=== PATIENT | male | born 1970 | race Caucasian/White ===

== ENCOUNTER 2017-12-06 02:50 | Inpatient (IN) | payer OTHER ==
[~2017-12-06] VITALS: Ht 167.6 cm; Wt 84.3 kg
[2017-12-06] VITALS (7 sets, daily range): BP systolic 118–180; BP diastolic 68–97; PULSE 51–73; RESP 20; TEMP 96.4–97.8; O2SAT 95–98
[2017-12-06] MEDS ORDERED: DEXTROSE 50% IN WATER 50 ML VIAL(D50) IV PUSH PRN (03:45)
[2017-12-06] MEDS ORDERED: PANTOPRAZOLE SODIUM 40 MG VIAL IV PUSH SCH (03:45)
[2017-12-06] MEDS ORDERED: ONDANSETRON HCL 4 MG/2 ML VIAL IV PUSH PRN (03:45)
[2017-12-06] MEDS ORDERED: GLUCAGON 1 MG/ML VIAL OTHER PRN (03:45)
[2017-12-06] MEDS: SODIUM CHLOR 0.9% 1000 ML INJ 1,000 ML IV SCH ×3 (04:18→21:54)
[2017-12-06 06:43] LABS: AUTOMATED NEUTROPHIL # 4.7 TH/MM3 (1.8-7.7); BASOPHIL # 0.1 TH/MM3 (0-0.2); BASOPHIL % 0.9 % (0.0-2.0); EOSINOPHIL # 0.3 TH/MM3 (0-0.4); EOSINOPHIL % 2.8 % (0.0-4.0); HEMOGLOBIN 15.3 GM/DL (13.0-17.0); LYMPH % 33.4 % (9.0-44.0); MEAN CORPUSCULAR HGB CONC 33.3 % (32.0-36.0); MEAN PLATELET VOLUME 7.8 FL (7.0-11.0); MONO % 8.8 % (0.0-8.0); MONOCYTE # 0.8 TH/MM3 (0-0.9); NEUT % 54.1 % (16.0-70.0); PLATELET COUNT 288 TH/MM3 (150-450); RED BLOOD COUNT 4.95 MIL/MM3 (4.50-5.90); RED CELL DISTRIBUTION WIDTH 12.9 % (11.6-17.2); WHITE BLOOD COUNT 8.9 TH/MM3 (4.0-11.0)
[2017-12-06 06:47] LABS: CHLORIDE 108 MEQ/L (98-107); SODIUM (NA) 141 MEQ/L (136-145)
[2017-12-06 06:55] LABS: CALCIUM 8.4 MG/DL (8.5-10.1)
[2017-12-06 06:56] LABS: BICARBONATE 26.7 MEQ/L (21.0-32.0); BLOOD UREA NITROGEN 9 MG/DL (7-18); GLUCOSE,RANDOM 158 MG/DL (74-106)
[2017-12-06 06:57] LABS: ALT (GPT) 22 U/L (12-78); AST (GOT) 10 U/L (15-37)
[2017-12-06 06:58] LABS: TOTAL BILIRUBIN ADULT 0.2 MG/DL (0.2-1.0); TOTAL PROTEIN 6.1 GM/DL (6.4-8.2)
[2017-12-06 06:59] LABS: ALKALINE PHOSPHATASE 81 U/L (45-117); GLOMERULAR FILTRATION RATE 121 ML/MIN (>89)
[2017-12-06] MEDS ORDERED: INSULIN ASPART SUPPLEMENTAL SCALE SQ SCH (08:00)
--- NOTE | 2017-12-06 08:47 | RADRPT ---
EXAM DATE: 12/06/2017 8:18 AM EDT AGE/SEX: 47 years / Male INDICATIONS: Right upper quadrant pain. CLINICAL DATA: This is the patient's initial encounter. Patient reports that signs and/or symptoms h ave been present for 1 week and indicates a pain score of 1/10. MEDICAL/SURGICAL HISTORY: Congestive heart failure. Hypercholesterolemia. Chronic obstructive pul monary disease. Myocardial infarction. Sleep apnea. Hiatal hernia. Diabetes. Hypertension. CABG. St ent placement. COMPARISON: [facility], CT ABDOMEN & PELVIS W CONTRAST, 12/05/2017. MEASUREMENTS (cm x cm x cm): Liver:__ 19.9 cm length Common Bile Duct:__ 4mm FINDINGS: Liver: Echogenic liver without ductal dilatation Portal Vein: Hepatopedal flow seen in portal vein. Common Duct: No intraluminal mass or stone visualized. Gallbladder: Negative for stone or pericholecystic fluid. Pancreas: Pancreas poorly seen. Right Kidney: No mass or hydronephrosis Other: Small right pleural effusion CONCLUSION: 1. Degenerative liver. 2. Benign-appearing gallbladder without stones. Electronically signed by: Perfecto Oro MD 12/06/2017 8:45 AM EDT
[2017-12-06 10:33] LABS: CHOLESTEROL 206 MG/DL (120-200)
[2017-12-06 10:39] LABS: CHOLESTEROL/ HDL RATIO 5.64 RATIO; HDL CHOLESTEROL 36.5 MG/DL (40.0-60.0); LDL CHOLESTEROL 120 MG/DL (0-99); TRIGLYCERIDES 247 MG/DL (42-150)
[2017-12-06] MEDS ORDERED: ATOR40TA16 PO (11:27)
[2017-12-06] MEDS ORDERED: ASPI-183 PO (11:27)
[2017-12-06] MEDS ORDERED: LISI10TA3 PO (11:27)
[2017-12-06] MEDS ORDERED: FISH100020 PO (11:27)
[2017-12-06] MEDS ORDERED: PIOG30TA4 PO (11:27)
[2017-12-06] MEDS ORDERED: DAPA1TAB3 PO (11:27)
[2017-12-06] MEDS ORDERED: BENA20TA PO (11:27)
[2017-12-06] MEDS ORDERED: GABA600T PO (11:27)
[2017-12-06] MEDS ORDERED: METF500T PO (11:27)
[2017-12-06] MEDS ORDERED: CLOP75TA PO (11:27)
[2017-12-06] MEDS ORDERED: FLUT50SP EACH NARE (11:27)
[2017-12-06] MEDS: INSULIN ASPART SUPPLEMENTAL SCALE SQ SCH ×3 (12:00→21:00)
--- NOTE | 2017-12-06 12:01 | MH ---
cc: Kecia Carvajal MD DATE OF ADMISSION: 12/06/2017 ADMISSION DIAGNOSIS: Pancreatitis. HISTORY OF PRESENT ILLNESS: Mr. Zimmer is a very pleasant 47-year-old gentleman who states he presented to the emergency room in [place] after developing persistent abdominal pain the day of presentation. He does state that 2 days prior to coming to the emergency room, he did feel like his stomach was what he calls rolling and upset. He said the pain was worse when he coughed or bent over. He does have a ventral hernia and he thought this might have been the cause of some of his discomfort. He states until then, he was in his usual state of health. He denied any change in his diet or medications. He did tell me he was taking increased BC Powder recently for migraine headaches that he has been having issues with over the last year. He denies any change in bowel movements. No nausea or emesis. He states he really does not consume any alcohol. He was a heavy alcohol drinker, but he stopped back in 2010. He did state that over the weekend, he did have 3 drinks of vodka, but he states he did not actually really finish them. PAST MEDICAL HISTORY: Significant for diabetes, coronary artery disease. He did have a stent placed last year. He did have a bypass to his left lower extremity he said for a blood clot that he had. He denies being put on a blood thinner after that. He says he has been told he has COPD, but is not under treatment for that. He also tells me that he has been told that he has sleep apnea and actually when he had his stent placed, they had to wake him repeatedly postoperatively, but that has not been evaluated. He also states he has a history of hypertension and high cholesterol. SURGICAL HISTORY: He denies any surgeries except for the bypass. MEDICATIONS: He is not sure of the dosages of his medications. He is able to tell me that he is on Plavix, atorvastatin, metformin, lisinopril, aspirin and gabapentin. HABITS: He has been a smoker since he was 17. He used to smoke 2 packs a day. He is now down to 1 pack a day. He is trying to cut back. Alcohol, he admits to being a heavy alcohol consumer. He said he had at least 30 shots of whiskey or 30 drinks with whiskey a week. He now very rarely drinks. He says on occasion, he will go and have a half a beer with his friends, but most of the time, he avoids alcohol. SOCIAL HISTORY: He is single. 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 REVIEW OF SYSTEMS: He states that he has had some recent weight loss. This has been unintentional. He does have chronic recurrent headaches primarily on the right side, which apparently he has been seen by multiple specialists for. He does say that he is very fatigued. He wakes up without feeling rested. He falls asleep easily. He does say that he does have some sinus issues, particularly when he is out. This will flare up at times while he is working out cutting the grass. He tells me he has seen an ENT. He denies any sore throat. No cough. No shortness of breath. No wheezing. He denies any chest pain or palpitations. He tells me that when he had his stent placed, his primary symptom was back pain, which he denies having. Abdominal pain, see history of present illness. He does say that he has been urinating. He does say his urine is dark. He tells me he realizes that one of his problems is that he does not drink a lot of fluids during the day and he particularly hydrates with Mountain Dew and Crystal Light. He is trying to drink more water. He does have some numbness in the left lower extremity. He does not know if that is from his diabetic neuropathy or if it is from the blood clot he had in his leg. He says that is what he is on the gabapentin for. PHYSICAL EXAM: VITAL SIGNS: Temperature is 96.4, pulse is 62, respirations 20, blood pressure is 118/74, pulse oximetry is 97 percent on room air. GENERAL: He is alert and oriented, very pleasant, does not appear to be in any acute distress right now. He is kind of elyssa complected. HEENT: Normocephalic, atraumatic. EOMs intact. He has a moist oral mucosa. NECK: Supple. LUNGS: Diminished breath sounds throughout with prolonged expiratory phase, but no rhonchi, rales or wheezes. HEART: Sounds are distant. They sound regular. ABDOMEN: Good bowel sounds in all 4 quadrants. No rebound or guarding. He does have a ventral hernia. EXTREMITIES: Show no clubbing or cyanosis. His left lower extremity, his ankle is a little bit larger than his right. LABORATORY DATA: When he presented to [place] showed a white count of 13, hemoglobin of 15.7, hematocrit of 45.2, platelet count of 337. His PT was 10.2 with an INR 1, PTT is 24.8. His sodium was 142 with a potassium of 3.6, BUN was 11 with a creatinine of 1. Random glucose was 258. His lactic acid was 2.9, calcium was 8.2, AST was 16, ALT was 26, alkaline phosphatase was 93. Troponin was less than 0.02. His BNP was 8, albumin was 3.3 and his lipase is 2171. Ethyl alcohol was less than 3. CT scan that was done in [place] showed a small cyst of the lower pole of the left kidney, probable 6 mm hepatic cyst in the right lobe. Small umbilical hernia containing mesenteric fat. Essentially no acute pathology. This morning, his white count is down to 8.9 with a hemoglobin of 15.3, hematocrit of 46. Sodium was 141 with a potassium of 3.6, creatinine was 0.7. Ionized calcium is pending. AST and ALT and alkaline phosphatase are normal. His lipase was 199, triglycerides were 247, LDL 120. Ionized calcium and hemoglobin A1c are still pending. Ultrasound of the liver showed degenerative liver with benign appearing gallbladder without stones. ASSESSMENT AND PLAN: 1. Apparent acute pancreatitis. This clinically appears to have resolved by this morning. He is pain free. He is feeling much better. His lipase has come down. He does not appear to have any gallstones. His triglycerides are elevated, but not as elevated as I would expect to cause pancreatitis. We did talk about his extensive drinking history and alcohol he did have this week and that might have been a little bit of a contributing factor. Be that as it may, I am going to try to progress his diet and continue to monitor him clinically. 2. For his diabetes, we will cover him with a sliding scale. I discussed with him the importance of taking his metformin. Apparently, he does miss one of his doses every day. It may be a consideration to put him on an extended release if he is able to only take the pill once a day, that might facilitate compliance. For his hypertension, his blood pressure so far has been fine off of antihypertensives. We will hold his lisinopril. For his neuropathy, he is on the gabapentin. For his history of thrombosis and coronary artery disease, I will resume his Plavix and aspirin. I did discuss with him it really sounds by history that he has sleep apnea and he really needs to be evaluated for this. Hopefully, he will be able to followup with his primary care physician and get this done as an outpatient. Further recommendations as the case develops. Kecia Carvajal MD [facility]TON[facility] , 11:20 AM , 11:59 AM
[2017-12-06] MEDS: CLOPIDOGREL 75 MG TAB PO SCH (12:23)
[2017-12-06] MEDS ORDERED: NICOTINE 21 MG/24 HR PATCH T-DERMAL ONE (13:00)
[2017-12-06] MEDS: FLUTICASONE PROPIONATE 50 MCG/ACT 16 GM NASAL SPRAY EACH NARE SCH (15:07)
[2017-12-06 16:32] LABS: HEMOGLOBIN A1C 8.5 % (4.3-6.0)
[2017-12-06] MEDS ORDERED: ATORVASTATIN 40 MG TAB PO SCH (21:00)
[2017-12-06] MEDS: GABAPENTIN 300 MG CAP PO SCH (21:51)
[2017-12-06] MEDS ORDERED: ENALAPRILAT 1.25 MG/ML VIAL IV PUSH ONE (22:45)
[2017-12-06] MEDS ORDERED: LISINOPRIL 10 MG TAB PO ONE (22:45)
[2017-12-07] VITALS: BP 135/81; PULSE 84; RESP 20; TEMP 97.5; O2SAT 95
[2017-12-07 06:20] LABS: AUTOMATED NEUTROPHIL # 5.8 TH/MM3 (1.8-7.7); BASOPHIL # 0.1 TH/MM3 (0-0.2); BASOPHIL % 1.1 % (0.0-2.0); EOSINOPHIL # 0.2 TH/MM3 (0-0.4); EOSINOPHIL % 2.5 % (0.0-4.0); HEMATOCRIT 44.4 % (39.0-51.0); HEMOGLOBIN 15.2 GM/DL (13.0-17.0); LYMPHOCYTE # 2.5 TH/MM3 (1.0-4.8); MEAN CELL VOLUME 91.8 FL (80.0-100.0); MEAN CORPUSCULAR HEMOGLOBIN 31.4 PG (27.0-34.0); MEAN CORPUSCULAR HGB CONC 34.2 % (32.0-36.0); MEAN PLATELET VOLUME 7.8 FL (7.0-11.0); MONO % 7.2 % (0.0-8.0); MONOCYTE # 0.7 TH/MM3 (0-0.9); NEUT % 62.2 % (16.0-70.0); PLATELET COUNT 295 TH/MM3 (150-450); RED BLOOD COUNT 4.84 MIL/MM3 (4.50-5.90); RED CELL DISTRIBUTION WIDTH 13.5 % (11.6-17.2); WHITE BLOOD COUNT 9.3 TH/MM3 (4.0-11.0)
[2017-12-07 06:33] LABS: CHLORIDE 108 MEQ/L (98-107); SODIUM (NA) 142 MEQ/L (136-145)
[2017-12-07 06:37] LABS: ALBUMIN 2.8 GM/DL (3.4-5.0); BICARBONATE 27.1 MEQ/L (21.0-32.0); BLOOD UREA NITROGEN 10 MG/DL (7-18); GLUCOSE,RANDOM 207 MG/DL (74-106)
[2017-12-07 06:40] LABS: ALT (GPT) 22 U/L (12-78); AST (GOT) 10 U/L (15-37); CREATININE 0.81 MG/DL (0.60-1.30); GLOMERULAR FILTRATION RATE 102 ML/MIN (>89)
[2017-12-07 06:42] LABS: TOTAL BILIRUBIN ADULT 0.1 MG/DL (0.2-1.0); TOTAL PROTEIN 5.7 GM/DL (6.4-8.2)
[2017-12-07 06:43] LABS: ALKALINE PHOSPHATASE 79 U/L (45-117)
[2017-12-07 07:50] VITALS: BP 138/88; PULSE 50; RESP 20; TEMP 96.9; O2SAT 96
[2017-12-07] MEDS: SODIUM CHLOR 0.9% 1000 ML INJ 1,000 ML IV SCH (08:17)
[2017-12-07] MEDS: INSULIN ASPART SUPPLEMENTAL SCALE SQ SCH ×2 (08:20→12:00)
[2017-12-07] MEDS: FLUTICASONE PROPIONATE 50 MCG/ACT 16 GM NASAL SPRAY EACH NARE SCH (08:20)
[2017-12-07] MEDS: CLOPIDOGREL 75 MG TAB PO SCH (08:21)
[2017-12-07] MEDS: GABAPENTIN 300 MG CAP PO SCH (08:21)
[2017-12-07] MEDS ORDERED: ASPIRIN 325 MG TAB PO SCH (09:00)
[2017-12-07] MEDS ORDERED: PANTOPRAZOLE SOD 40 MG DELAYED RELEASE TAB PO SCH (09:00)
[2017-12-07] MEDS ORDERED: NON-FORMULARY DRUG (Omega-3 Fatty Acids (Fish Oil 1000 mg) 1,000 MG) PO SCH (09:00)
[2017-12-07] MEDS ORDERED: LISINOPRIL 10 MG TAB PO SCH (09:00)
--- NOTE | 2017-12-07 11:34 | HHI.PR ---
Subjective Remarks feels fine this morning, wants to go home, has never had diabetic education, does not know how to use his meter Objective Vitals Vital Signs Date Time Temp Pulse Resp B/P (MAP) Pulse Ox O2 Delivery O2 Flow Rate FiO2 12/07/17 07:50 96.9 50 20 138/88 (105) 96 12/07/17 00:00 97.5 84 20 135/81 (99) 95 12/06/17 20:05 97 21 12/06/17 20:00 97.7 66 20 180/97 (124) 95 12/06/17 15:50 97.8 73 20 134/76 (95) 98 12/06/17 11:50 96.8 51 20 139/90 (106) 12/07/17 12/07/17 12/08/17 15:00 23:00 07:00 Intake Total 859 ml Balance 859 ml Intake Oral 500 ml IV Total 359 ml # Voids 1 Result Diagram: 12/07/17 0555 12/07/17 0555 Objective Remarks sitting and walking around room nad lungs cta bilaterally heart rrr abdomen nontender, umbilical hernia ext no edema A/P Problem List: (1) Pancreatitis ICD Codes: K85.90 - Acute pancreatitis without necrosis or infection, unspecified Status: Resolved Plan: lipase was down by yesterday and he is tolerating food with out any discomfort (2) Diabetes type 2, uncontrolled ICD Codes: E11.65 - Type 2 diabetes mellitus with hyperglycemia Status: Chronic Plan: Had long discussion with patient. He know very little about his diabetes , medications, diet or how to use glucometer. Will have supervisor laboratory see him today before discharge. Have spoken to case management ar [facility] and they will set him up with diabetic education and cap cutter. Given the physical nature of his job and the potential for dehydration have asked him to hold off on using his farxiga. He verbalizes understanding and an interest in the diabetic education and cap cutter (3) Hypertension ICD Codes: I10 - Essential (primary) hypertension Status: Chronic Plan: lisinopril resumed last night (4) Coronary artery disease ICD Codes: I25.10 - Atherosclerotic heart disease of [place] coronary artery without angina pectoris Status: Chronic Plan: s/p stent placement last november per patient. Discussed with him the importance of controlling risk factors such as diabetes, cholesterol and smoking cessation (5) Hyperlipidemia ICD Codes: E78.5 - Hyperlipidemia, unspecified Status: Chronic Plan: ldl not at goal for a diabetic and CAD will increase atorvastatin to 80 mg daily (6) Nicotine dependence ICD Codes: F17.200 - Nicotine dependence, unspecified, uncomplicated Status: Chronic Plan: discussed importance of smoking cessation, currently using nicotine patch Discharge Planning discharge later today after seen by supervisor laboratory Problem Qualifiers (1) Pancreatitis: (2) Diabetes type 2, uncontrolled: (3) Hypertension: Qualified Codes: I10 - Essential (primary) hypertension (4) Nicotine dependence: Kecia Carvajal MD December 07, 2017 11:34
[2017-12-07 11:44] VITALS: O2SAT 97
[2017-12-07 11:50] VITALS: BP 162/82; PULSE 69; RESP 20; TEMP 98.7; O2SAT 92
[2017-12-07] MEDS ORDERED: ATOR40TA16 PO (12:57)
[2017-12-07] MEDS ORDERED: LISI10TA3 PO (12:57)
== END 2017-12-07 14:40 | disposition home or self-care (01) | DRG 440 ==
LOC: PHEDDLT 02:50 → PH3A 03:10 → OBSVTOIN 03:38
PROVIDERS: ADMIT Legal Medicine; ATTEND Legal Medicine
DX: K85.90 Acute pancreatitis without necrosis or infection, unspecified (principal); E11.40 Type 2 diabetes mellitus with diabetic neuropathy, unspecified; E11.65 Type 2 diabetes mellitus with hyperglycemia; I10 Essential (primary) hypertension; G43.909 Migraine, unspecified, not intractable, without status migrainosus; I25.10 Atherosclerotic heart disease of native coronary artery without angina pectoris; J44.9 Chronic obstructive pulmonary disease, unspecified; E78.00 Pure hypercholesterolemia, unspecified; E78.5 Hyperlipidemia, unspecified; K43.9 Ventral hernia without obstruction or gangrene; G47.30 Sleep apnea, unspecified; F17.210 Nicotine dependence, cigarettes, uncomplicated; Z86.718 Personal history of other venous thrombosis and embolism; Z79.02 Long term (current) use of antithrombotics/antiplatelets; Z79.82 Long term (current) use of aspirin; Z79.84 Long term (current) use of oral hypoglycemic drugs
CPT/HCPCS: 74177; 76705; 80053; 80061; 80307; 82330; 82948; 83036; 83605; 83690; 83880; 84484; 85025; 85610; 85730; 93005; 96361; 96374; C9113; J1815; J7030; Q9967